=== PATIENT | female | born 1990 | race Caucasian/White ===

== ENCOUNTER → 2020-12-06 | Outpatient (CLI) | payer OTHER | LOC: LAB 21:43 | DX: M79.10 Myalgia, unspecified site (principal); R05 Cough; J02.9 Acute pharyngitis, unspecified; Z20.822 Contact with and (suspected) exposure to COVID-19 | CPT/HCPCS: 0240U; 87081; 87880 ==

== ENCOUNTER → 2021-06-17 | Outpatient (CLI) | payer OTHER | LOC: OPSV 21:31 | DX: U07.1 COVID-19 (principal) | CPT/HCPCS: U0002 ==

== ENCOUNTER → 2021-12-20 | Outpatient (CLI) | payer BC | LOC: RAD 14:35 | DX: M25.562 Pain in left knee (principal) | CPT/HCPCS: 73564 ==